=== PATIENT | male | born 1995 | race Native Hawaiian/Other Pacific Islander ===

== ENCOUNTER 2018-01-24 21:33 | Emergency (ER) | payer BC ==
--- NOTE | 2018-01-24 21:46 | C.PDOC ---
History Of Present Illness 22 y/o male c/o pain and bleeding to left 3rd digit after accidentally slamming it in a door just [employer]. tdap utd. no analgesics taken at home. Time Seen by Provider: 01/24/18 21:41 Chief Complaint (Nursing): Abnormal Skin Integrity History Per: Patient History/Exam Limitations: no limitations Onset/Duration Of Symptoms: Hrs (1) Current Symptoms Are (Timing): Still Present Location Of Injury: Left: Hand (middle finger) Quality Of Symptoms: Painful Severity: Moderate Past Medical History Reviewed: Historical Data, Nursing Documentation, Vital Signs Vital Signs: Last Vital Signs Temp 99.3 F 01/24/18 21:41 Pulse 82 01/24/18 21:41 Resp 20 01/24/18 23:46 BP 117/71 01/24/18 21:41 Pulse Ox 100 01/24/18 23:37 - Medical History PMH: No Chronic Diseases Family History: States: Unknown Family Hx - Social History Hx Alcohol Use: No Hx Substance Use: No Review Of Systems Constitutional: Negative for: Fever, Chills Musculoskeletal: Positive for: Hand Pain (leftmiddle finger) Skin: Positive for: Other (laceration left middle finger) Neurological: Negative for: Weakness, Numbness Physical Exam - Physical Exam Appears: Non-toxic, No Acute Distress Skin: Warm, Dry Extremity: Other (left middle finger with abrasion on dorsal surace over middle phalanx. diagonal laceration across nail with active slow bleeding; distal section of nail missing. small 2 mm laceration to palmar surface dip left middle finger. proximal edge of nail loose on medial aspect nail with bleeding. ) ED Course And Treatment O2 Sat by Pulse Oximetry: 100 Laceration - Laceration Repair left middle finger Wound Length (In cm): 1cm Description Of Wound: Irregular, Contused Tissue Wound Cleansed With: Betadine, Sterile Saline Anesthesia: Lidocaine 1% (digital block left middle finger) Wound Examination: Irrigated With Saline, No FB With Wound Exploration Wound Closure: Suture (5-0 prolene) Suture Technique And Material Used: Interrupted Wound Complexity: Simple Medical Decision Making Medical Decision Making: pt with crush injury to left middle finger. Tdap utd; get xray. iv antibiotic for open fracture, analgesics, repair nail bed laceration. [id number] wound irrigated, sutures done, gel foa applied and vaseline gauze placed. then bulky dressing. pt advised to see hand surgeon on Friday and to return to er if unable to make appt for wound check. Disposition - Disposition Referrals: Kaitlynn Lopez MD [Staff Provider] - Disposition: HOME/ ROUTINE Disposition Time: 23:31 Condition: GOOD Additional Instructions: Please keep finger clean and dry. GO to hand surgeon (either Dr Lopez or doctor of your choice) on Friday; call for appointment. If unable to be seen, then return to ER for a wound check. Take antibiotics as prescribed, Tylenol for pain. Prescriptions: Acetaminophen [Tylenol 325mg tab] 650 mg PO Q4 #50 tab Cephalexin [cephalexin] 500 mg PO Q6 #28 cap Instructions: Finger Fracture (DC), Nail Avulsion Forms: [facility] (Urdu), General Discharge Instructions - Clinical Impression Clinical Impression: Open fracture of distal phalanx of left middle finger, Nailbed laceration, finger
[2018-01-24 21:55] VITALS: BP 117/71; PULSE 82; RESP 20; TEMP 99.3; O2SAT 100
[2018-01-24] MEDS ORDERED: ceFAZolin IV 1 gm in Dextrose 1 GM/50 ML BAG IVPB ONE (22:16)
[2018-01-24] MEDS ORDERED: ceFAZolin 1 gm in NS 1 GM/100 ML BAG IVPB ONE (22:21)
[2018-01-24] MEDS ORDERED: Lidocaine 1% Inj (20ml) INFIL STA (22:26)
[2018-01-24] MEDS ORDERED: Absorbable Gelatin Sponge Size 12-7 ONE (23:27)
--- NOTE | 2018-01-25 09:36 | RAD ---
Date of service: 01/24/2018 PROCEDURE: Left middle finger radiographs. HISTORY: crush injury to finger, eval for fx COMPARISON: None. TECHNIQUE: AP radiograph of the left hand, as well as spot oblique and lateral images of left middle finger were obtained. FINDINGS: LEFT MIDDLE FINGER: There is a chip or avulsion fracture related to the tuft of the distal phalanx left ring finger. Bone and soft tissue detail are somewhat obscured by overlying gauze. Remainder of the left hand (as seen on the AP view) is grossly unremarkable. JOINTS: Normal. SOFT TISSUES: Normal. OTHER FINDINGS: None. IMPRESSION: Left ring finger distal phalanx tuft avulsion or chip fracture.
== END 2018-01-24 23:45 | disposition home or self-care (01) ==
LOC: C.ER 21:33
DX: S62.633B Displaced fracture of distal phalanx of left middle finger, initial encounter for open fracture (principal); W23.0XXA Caught, crushed, jammed, or pinched between moving objects, initial encounter; Y92.9 Unspecified place or not applicable
CPT/HCPCS: 73140; 96365; 99285; J0690

== ENCOUNTER 2018-01-26 14:02 | Emergency (ER) | payer BC ==
[2018-01-26 14:18] VITALS: BP 120/70; PULSE 82; RESP 20; TEMP 98.5; O2SAT 99
--- NOTE | 2018-01-26 14:37 | C.PDOC ---
History Of Present Illness 22 y/o male presents to ED for wound check to left 3rd finger after jamming on door. Patient was advised to return to ED today for wound check and denies fever , discharge on any other complaints at this time. Time Seen by Provider: 01/26/18 14:17 Chief Complaint (Nursing): Wound Check History Per: Patient History/Exam Limitations: no limitations Onset/Duration Of Symptoms: Days Ago Current Symptoms Are (Timing): Better Past Medical History Reviewed: Historical Data, Nursing Documentation, Vital Signs Vital Signs: Last Vital Signs Temp 98.5 F 01/26/18 14:13 Pulse 82 01/26/18 14:13 Resp 20 01/26/18 14:13 BP 120/70 01/26/18 14:13 Pulse Ox 99 01/26/18 15:27 - Medical History PMH: No Chronic Diseases Surgical History: No Surg Hx Family History: States: No Known Family Hx - Social History Hx Alcohol Use: No Hx Substance Use: No Review Of Systems Except As Marked, All Systems Reviewed And Found Negative. Musculoskeletal: Positive for: Hand Pain Skin: Negative for: Rash, Bruising Physical Exam - Physical Exam Appears: Non-toxic, No Acute Distress Skin: Warm, Dry Head: Atraumatic, Normacephalic Eye(s): bilateral: Normal Inspection Oral Mucosa: Moist Extremity: Capillary Refill (<2 seconds), No Deformity, Other (dressing removed from left 3rd finger. wound healing properly. no discharge noted) Pulses: Left Radial: Normal Neurological/Psych: Oriented x3, Normal Motor, Normal Sensation ED Course And Treatment O2 Sat by Pulse Oximetry: 99 (RA) Pulse Ox Interpretation: Normal Medical Decision Making Medical Decision Making: wound cleaned and redressed, patient had no complaints at this time. no e/o of active infection. does not request analgesia. Disposition - Disposition Referrals: [facility] [Outside] [facility] [Outside] Douglas Bryan MD [Staff Provider] - Michael Tadeo MD [Staff Provider] - Disposition: HOME/ ROUTINE Disposition Time: 02:00 Condition: STABLE Additional Instructions: please see specialist. return to er with worsening symptoms or concerns. Instructions: Wound Care (DC), Crush Injury Forms: [facility] (Citizen Of [place]) - Clinical Impression Clinical Impression: Nailbed laceration, finger - Scribe Statement The provider has reviewed the documentation as recorded by the Scribe Maricsa Houser All medical record entries made by the Marci were at my direction and personally dictated by me. I have reviewed the chart and agree that the record accurately reflects my personal performance of the history, physical exam, medical decision making, and the department course for this patient. I have also personally directed, reviewed, and agree with the discharge instructions and disposition.
== END 2018-01-26 15:02 | disposition home or self-care (01) ==
LOC: C.ER 14:02
DX: S61.313D Laceration without foreign body of left middle finger with damage to nail, subsequent encounter (principal); W23.0XXD Caught, crushed, jammed, or pinched between moving objects, subsequent encounter

== ENCOUNTER 2018-01-30 18:07 | Emergency (ER) | payer BC ==
[2018-01-30 18:15] VITALS: BP 100/63; PULSE 69; RESP 16; TEMP 98.5; O2SAT 100
[2018-01-30] MEDS ORDERED: Bacitracin 500 Units/gm Oint Foilpak UD TOP ONE (18:46)
--- NOTE | 2018-01-30 18:47 | C.PDOC ---
History Of Present Illness 22 year old male patient presents to the ER with request to aid in changing his bandage on left middle finger. Pt was seen on 01/24/18 for an open fracture and sutures were placed. Patient returned 4 days ago for dressing change and has not changed bandage since then. Patient states his injury is getting better, pain has improved, no bleeding. Denies change in sensation or weakness. Reports appointment with hand specialist on 02/06/18. Time Seen by Provider: 01/30/18 18:30 Chief Complaint (Nursing): Wound Check History Per: Patient History/Exam Limitations: no limitations Past Medical History Reviewed: Historical Data, Nursing Documentation, Vital Signs Vital Signs: Last Vital Signs Temp 98.5 F 01/30/18 18:13 Pulse 69 01/30/18 18:13 Resp 16 01/30/18 18:13 BP 100/63 01/30/18 18:13 Pulse Ox 100 01/30/18 19:31 Family History: States: Unknown Family Hx - Social History Hx Alcohol Use: No Hx Substance Use: No Review Of Systems Except As Marked, All Systems Reviewed And Found Negative. Physical Exam - Physical Exam Appears: Well, Non-toxic, No Acute Distress Skin: Warm, Dry Head: Atraumatic, Normacephalic Eye(s): bilateral: Normal Inspection Chest: Symmetrical Respiratory: No Accessory Muscle Use Extremity: Normal ROM (x4), Capillary Refill (< 2 sec), Swelling (mild swelling) , Other ((+) healing wound to the left 3rd finger with sutures intact, no erythema , no discharge ) Pulses: Left Radial: Normal Neurological/Psych: Oriented x3, Normal Speech, Normal Sensation Gait: Steady ED Course And Treatment O2 Sat by Pulse Oximetry: 100 (RA) Progress Note: Impression: 22 year old male patient requesting assists bandage change. Plans: -- Bacitracin. Patient was assisted in changing his bandage by RN. Wound was irrigated and bacitracin applied. Patient is resting comfortably. Patient advise to follow up with hand specialist as scheduled. Disposition - Disposition Disposition: HOME/ ROUTINE Disposition Time: 18:46 Condition: STABLE Additional Instructions: Follow up with hand specialist in 1-2 days. Return to ER if symptoms persist or worsen. Instructions: Wound Care (DC) Forms: [facility] ([place]) - Clinical Impression Clinical Impression: Encounter for wound re-check - PA / TRANSITIONS MANAGER / Resident Statement / has reviewed & agrees with the documentation as recorded. - Scribe Statement The provider has reviewed the documentation as recorded by the Marci Reyna Do All medical record entries made by the Amosibjoseph were at my direction and personally dictated by me. I have reviewed the chart and agree that the record accurately reflects my personal performance of the history, physical exam, medical decision making, and the department course for this patient. I have also personally directed, reviewed, and agree with the discharge instructions and disposition.
[2018-01-30] MEDS ORDERED: Bacitracin 500 Units/gm Oint Foilpak UD ONE (19:39)
== END 2018-01-30 19:52 | disposition home or self-care (01) ==
LOC: C.ER 18:07
DX: S61.313D Laceration without foreign body of left middle finger with damage to nail, subsequent encounter (principal); W23.0XXD Caught, crushed, jammed, or pinched between moving objects, subsequent encounter

== ENCOUNTER 2018-02-01 16:21 | Emergency (ER) | payer BC ==
[2018-02-01 16:37] VITALS: TEMP 98.3
--- NOTE | 2018-02-01 16:42 | C.PDOC ---
History Of Present Illness 22-year-old male, presents to the emergency department for evaluation of wound on left middle finger. Pt was seen on 01/24/18 for an open fracture and sutures were placed. Patient came to the ED two days ago, requesting change in bandage. Patient states his injury is getting better, pain has improved, no bleeding. Denies change in sensation or weakness. He is pending an appointment with hand specialist on 02/06/18. Time Seen by Provider: 02/01/18 16:41 Chief Complaint (Nursing): Wound Check History Per: Patient History/Exam Limitations: no limitations Current Symptoms Are (Timing): Still Present Past Medical History Reviewed: Historical Data, Nursing Documentation, Vital Signs Vital Signs: Last Vital Signs Temp 98.3 F 02/01/18 16:35 Pulse 68 02/01/18 17:33 Resp 18 02/01/18 17:33 BP 105/76 02/01/18 17:33 Pulse Ox 97 02/01/18 17:33 Family History: States: No Known Family Hx - Social History Hx Alcohol Use: No Hx Substance Use: No - Immunization History Hx Tetanus Toxoid Vaccination: Yes Hx Influenza Vaccination: No Hx Pneumococcal Vaccination: No Review Of Systems Except As Marked, All Systems Reviewed And Found Negative. Constitutional: Negative for: Fever, Chills Gastrointestinal: Negative for: Nausea, Vomiting Physical Exam - Physical Exam Appears: Non-toxic, No Acute Distress Skin: Warm, Dry, No Rash Head: Atraumatic, Normacephalic Eye(s): bilateral: Normal Inspection Nose: Normal Oral Mucosa: Moist Lips: Normal Appearing Neck: Normal ROM Respiratory: No Accessory Muscle Use Extremity: Normal ROM, Capillary Refill (<2 seconds), No Deformity, Other ((+) healing wound to the left 3rd finger with sutures intact, no erythema , no discharge) Pulses: Left Radial: Normal, Right Radial: Normal Neurological/Psych: Oriented x3, Normal Speech ED Course And Treatment O2 Sat by Pulse Oximetry: 99 Medical Decision Making Medical Decision Making: Packing was removed from nail bed, and wound was re-packed. pt is pending an appointment with hand. He is instructed to return for evaluation of wound in a few days. Disposition - Disposition Disposition: HOME/ ROUTINE Disposition Time: 17:12 Condition: STABLE Additional Instructions: Follow up with hand specialist within 1-2 days. Return to ED if feels worse. Instructions: Wound Care (DC) Forms: [facility] ([place]) - Clinical Impression Clinical Impression: Encounter for wound re-check - Scribe Statement The provider has reviewed the documentation as recorded by the Scribe (Yaya Delgado) All medical record entries made by the Scribe were at my direction and personally dictated by me. I have reviewed the chart and agree that the record accurately reflects my personal performance of the history, physical exam, medical decision making, and the department course for this patient. I have also personally directed, reviewed, and agree with the discharge instructions and disposition.
[2018-02-01] MEDS ORDERED: Bacitracin 500 Units/gm Oint Foilpak UD ONE (17:07)
[2018-02-01 17:34] VITALS: BP 105/76; PULSE 68; RESP 18
[2018-02-01 18:24] VITALS: O2SAT 99
== END 2018-02-01 17:34 | disposition home or self-care (01) ==
LOC: C.ER 16:21
DX: Z48.00 Encounter for change or removal of nonsurgical wound dressing (principal)